=== PATIENT | female | born 1985 | race Caucasian/White ===

== ENCOUNTER 2018-05-29 15:25 | Emergency (ER) | payer OTHER ==
--- NOTE | 2018-05-29 15:36 | ED Physician Documentation ---
Lower Extremity Problem - HPI Stated Complaint: bilateral leg pain Chief Complaint: Lower Extremity Problem Additional Information: Patient presents to ED with a 12 hour history of bilateral leg pain. Patient states she woke up with pain in both of her shins this morning. She has taken Naproxen, Ibuprofen, flexeril and gabapentin without relief. Patient denies any injury or trauma Location of Injury: R leg, L leg Onset: hours (12) Timing: still present Duration: constant Recent Injury: No Where: home Severity: mild Quality: pain, tenderness. denies: swelling, numbness, tingling Exacerbated By: walking, movement Relieved By: nothing Associated Symptoms: denies: chest pain, shortness of breath, rapid heart rate, fainting - ROS CONST: no problems MS/SKIN/LYMPH: none CVS/RESP: none GI/: none EYES/ENT: none NERUO/PSYCH: denies: headache, difficulty walking - PAST HX Past History: none PE Risk Factors: none Surgeries/Procedures: none Allergies/Adverse Reactions: Allergies Allergy/AdvReac Type Severity Reaction Status Date / Time morphine Allergy Severe breathing Verified 11/30/15 11:25 coconut oil Allergy Verified 11/30/15 11:25 Home Medications: Ambulatory Orders Medication Instructions Recorded Cyclobenzaprine HCl [Flexeril] 10 mg PO TID 05/29/18 Meloxicam 7.5 mg PO DAILY 05/29/18 - SOCIAL HX Smoking History: cigarettes, greater than 1 pack/day Alcohol Use: none Drug Use: none - FAMILY HX Family History: none - VITAL SIGNS Vital Signs: Vital Signs Temp Pulse Resp BP Pulse Ox 126/98 11/30/15 13:04 - REVIEWED ASSESSMENTS Nursing Assessment Reviewed: Yes Vitals Reviewed: Yes Lower Extremity Problem - EXAM General Appearance: no distress Hips: bilateral hip: non-tender, normal inspection, normal range of motion, no evidence of injury Legs: bilateral: normal inspection, normal range of motion, no evidence of injury, soft tissue tenderness Knees: bilateral: non-tender, normal inspection, normal range of motion, no evidence of injury Ankle: bilateral: non-tender, normal inspection, normal range of motion, no evidence of injury Foot: bilateral foot: non-tender, normal inspection, normal range of motion, no evidence of injury Neuro/Tendon: normal sensation, normal motor functions EENT: LAUREN RESPIRATORY: no resp distress, chest non-tender, breath sounds normal CVS: reg rate & rhythm, heart sounds normal JOINT: joints nml, nml ROM VASCULAR: no vascular compromise, pulses full/equal NEURO/PSYCH: oriented X3 SKIN: warm/dry BACK: normal inspection Discharge Clincal Impression: Green splints Qualifiers: Encounter type: initial encounter Laterality: unspecified laterality Qualified Code(s): S86.899A - Other injury of other muscle(s) and tendon(s) at lower leg level, unspecified leg, initial encounter Referrals: Primary Doctor,No [Primary Care Provider] - 2 Days Additional Instructions: 1. Tylenol and/or Ibuprofen as needed for pain. these may be taken together for better pain control 2. Perform attached stretching exercises 3. Follow up with PCP within 1 week 4. Return to ER for new or worsening symptoms. Condition: Stable Disposition: 01 HOME, SELF-CARE Decision to Admit: NO Date of Decison to Admit: 05/29/18 Decision Time: 15:48
[2018-05-29 16:45] VITALS: BP 124/68
== END 2018-05-29 15:57 | disposition home or self-care (01) ==
LOC: ED 15:25
DX: S86.891A Other injury of other muscle(s) and tendon(s) at lower leg level, right leg, initial encounter (principal); S86.892A Other injury of other muscle(s) and tendon(s) at lower leg level, left leg, initial encounter; X58.XXXA Exposure to other specified factors, initial encounter; Y93.9 Activity, unspecified; Y92.9 Unspecified place or not applicable
CPT/HCPCS: 99281; 99282

== ENCOUNTER 2018-06-29 21:08 | Emergency (ER) | payer OTHER ==
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
[2018-06-29] MEDS ORDERED: SULFAMETHOXAZOLE/TRIMETHOPRIM 800/160MG TAB PO ONE (21:36)
[2018-06-29 23:02] VITALS: BP 124/78
== END 2018-06-29 22:10 | disposition home or self-care (01) ==
LOC: ED 21:08
DX: L03.113 Cellulitis of right upper limb (principal)
CPT/HCPCS: 99283; A9270

== ENCOUNTER 2018-07-03 12:58 | Emergency (ER) | payer OTHER ==
[2018-07-03] MEDS: ONDANSETRON HCL 4 MG TAB.RAPDIS PO ONE (13:48)
[2018-07-03] MEDS: ONDANSETRON HCL 4 MG TAB.RAPDIS ONE (13:48)
[2018-07-03 14:21] VITALS: BP 101/66
--- NOTE | 2018-07-03 15:04 | ED Physician Documentation ---
General Adult - HISTORIAN Historian: patient - HPI Stated Complaint: nausea Chief Complaint: General Adult Onset: days ago Timing: still present Severity: moderate Further Comments: yes (Pt is a 32 yo female seen here on for an abscess on her R forearm. Pt was tx'd with Bactrim DS and infection is improving. Pt expressed a large amont of pus from the site at home and had pictures demonstrating this. Lesion had been 8 x 5 cm. Lesion is improving but pt has been feeling nauseated.) - ROS CONST: no problems EYES/ENT: none CVS/RESP: none GI/: nausea MS/SKIN/LYMPH: other (abscess R forearm) - PAST HX Past History: other (BTL, appendectomy, tonsillectomy) Allergies/Adverse Reactions: Allergies Allergy/AdvReac Type Severity Reaction Status Date / Time No Known Allergies Allergy Verified 07/03/18 13:39 Home Medications: Ambulatory Orders Medication Instructions Recorded Amitriptyline HCl 25 mg PO DAILY 06/29/18 Gabapentin [Neurontin] 300 mg PO DAILY 06/29/18 Hydrocodone/Acetaminophen 1 tab PO TID 06/29/18 [Hydrocodone-Acetamin 5-325 mg] traMADol HCL [Ultram] 50 mg PO PRN PRN 06/29/18 Baclofen 20 mg PO TID 07/03/18 Methocarbamol 750 mg PO DAILY 07/03/18 - SOCIAL HX Smoking History: cigarettes - FAMILY HX Family History: No - VITAL SIGNS Vital Signs: Vital Signs Temp Pulse Resp BP Pulse Ox 96.1 F L 88 16 101/66 98 07/03/18 13:20 07/03/18 14:18 07/03/18 14:18 07/03/18 14:18 07/03/18 14:18 - REVIEWED ASSESSMENTS Nursing Assessment Reviewed: Yes Vitals Reviewed: Yes Progress - Progress Progress: Rx Doxycycline 100 mg po bid x 7 days. Rx Zofran ODT 4 mg po q 8 h prn, #8, 1st dose in ER. ED Results Lab/Radiology - Orders Orders: ED Orders Category Date Time Status Ondansetron HCl Rapdis [Zofran Odt] Med 07/03/18 13:43 Discontinued 4 mg .ROUTE .STK-MED ONE Ondansetron HCl Rapdis [Zofran Odt] Med 07/03/18 13:46 Discontinued 4 mg PO NOW ONE General Adult Physical Exam - PHYSICAL EXAM GENERAL APPEARANCE: mild distress EENT: pharynx normal NECK: normal inspection, supple RESPIRATORY: no resp distress, chest non-tender, breath sounds normal CVS: reg rate & rhythm, heart sounds normal ABDOMEN: soft, no organomegaly, normal bowel sounds BACK: normal inspection SKIN: other (abscess R forarm, indurated 4 x 3 cm (improved since previous exam 06/29/18)) EXTREMITIES: normal range of motion, other (abscess R forarm, indurated 4 x 3 cm (improved since previous exam 06/29/18)) NEURO: oriented X3, motor nml, sensation nml Discharge Clincal Impression: Abscess of right forearm, Nausea Referrals: Sherie Toledo FNP [Primary Care Provider] - Condition: Good Disposition: 01 HOME, SELF-CARE Decision to Admit: NO Decision Time: 14:15
== END 2018-07-03 14:19 | disposition home or self-care (01) ==
LOC: ED 12:58
DX: L02.413 Cutaneous abscess of right upper limb (principal); R11.0 Nausea
CPT/HCPCS: 99283; A9270